=== PATIENT | female | born 1960 | race Caucasian/White ===

== ENCOUNTER → 2017-06-28 | Outpatient (REF) | payer OTHER ==
[2017-06-28 18:20] LABS: ALBUMIN/GLOBULIN RATIO 1.33 (1.00-1.93); ALKALINE PHOSPHATASE 90 U/L (45-117); ALT/SGPT 26 U/L (12-78); ANION GAP 6 MEQ/L (8-16); AST/SGOT 15 U/L (15-37); BILIRUBIN,TOTAL 0.6 MG/DL (0.2-1.0); BLOOD UREA NITROGEN 12 MG/DL (7-18); CALCIUM LEVEL 9.3 MG/DL (8.5-10.1); CARBON DIOXIDE LEVEL 29 MEQ/L (21-32); CHLORIDE LEVEL 107 MEQ/L (98-107); CREATININE FOR GFR 0.71 MG/DL (0.55-1.02); GLOMERULAR FILTRATION RATE > 60.0 (>51); GLUCOSE, FASTING 71 MG/DL (70-105); POTASSIUM SERUM 4.4 MEQ/L (3.5-5.1); SODIUM LEVEL 142 MEQ/L (136-145)
[2017-06-28 21:50] LABS: MEAN CORPUSCULAR HGB CONC 33.7 g/dl (32.0-36.5); RED CELL DISTRIBUTION WIDTH 12.7 % (11.5-14.5); WHITE BLOOD COUNT 4.8 K/mm3 (4.0-10.0)
[2017-07-01 00:06] LABS: Lyme Disease IgG/IgM Antibodie <0.91 ISR (0.00-0.90); Lyme Disease IgM Ab Quantitati <0.80 index (0.00-0.79)
== END ==
LOC: M SFHCCLAY 13:52
PROVIDERS: ATTEND Nurse Practitioner
DX: G89.29 Other chronic pain (principal); R53.83 Other fatigue; M79.1 Myalgia

== ENCOUNTER → 2018-01-29 | Outpatient (CLI) | payer OTHER | LOC: M CLY 11:58 | DX: M17.12 Unilateral primary osteoarthritis, left knee (principal) | CPT/HCPCS: 73564 ==

== ENCOUNTER → 2019-06-25 | Outpatient (REF) | payer OTHER | LOC: M SFHCCLAY 12:19 | PROVIDERS: ATTEND Nurse Practitioner Family | DX: Z01.419 Encounter for gynecological examination (general) (routine) without abnormal findings (principal) ==

== ENCOUNTER → 2020-12-16 | Outpatient (CLI) | payer OTHER ==
--- NOTE | 2020-12-16 10:02 | REP ---
INDICATION: PAIN LT KNEE, OA LT JKNEE. COMPARISON: Radiographs 01/29/2018 TECHNIQUE: Multiple sequences obtained in the axial, coronal and sagittal planes. FINDINGS: Menisci: There is a complex tear of the posterior horn of the medial meniscus. Lateral meniscus appears intact. Cruciate ligaments: Intact. Collateral ligaments: Intact. Extensor mechanism/patellar retinacula: Intact. Cartilage: There is moderate diffuse chondromalacia of the patella. There is a focal 4 mm chondral defect of the lateral patellar facet extending close to the bone surface with some minimal subchondral marrow edema. There is moderate diffuse chondromalacia along the medial femoral condyle and tibial plateau. There is mild diffuse chondromalacia along the lateral femoral condyle and tibial plateau. Bone marrow: There is mild subchondral marrow edema in the medial femoral condyle and lateral patellar facet. Small subchondral cystic changes are seen at the femoral notch and in the tibial plateau centrally. Joint fluid: There are moderate joint effusion with synovial thickening. Popliteal region: There is a lobulated Meraz's cyst which measures approximately 4.5 x 2.2 x 1.6 cm. There is mild spurring of the femoral condyles. A rounded structure at the anterolateral aspect of the joint may represent a joint body measuring about 1 cm in maximum diameter. IMPRESSION: Complex tear posterior horn medial meniscus. Fairly significant chondromalacia as discussed in detail above, with mild subchondral marrow edema in the medial femoral condyle and lateral patellar facet. Moderate joint effusion with synovial thickening. Meraz's cyst. Possible 1 cm joint body at the anterolateral margin of the joint. <Electronically signed by Hong Crocker > 12/16/20 [id number]
== END ==
LOC: M RAD 08:13
PROVIDERS: ATTEND Orthopaedic Surgery Sports Medicine
DX: M17.12 Unilateral primary osteoarthritis, left knee (principal); S83.232A Complex tear of medial meniscus, current injury, left knee, initial encounter; X58.XXXA Exposure to other specified factors, initial encounter; Y92.9 Unspecified place or not applicable; M25.462 Effusion, left knee; M71.22 Synovial cyst of popliteal space [Baker], left knee; M94.262 Chondromalacia, left knee

== ENCOUNTER → 2021-02-25 | Outpatient (CLI) | payer OTHER ==
--- NOTE | 2021-02-25 16:31 | REP ---
INDICATION: PAIN. COMPARISON: X-ray 01/29/2018 left, 08/19/2013 right knee TECHNIQUE: AP standing bilateral knee view FINDINGS: Mild narrowing of the medial compartment of both knees, slightly more on the left than right. Marginal osteophytes medial greater than lateral joint margins and small osteophytes tibial spines. No fracture, loose body, OCD or focal bone lesion. IMPRESSION: 1. Mild chondromalacia in the medial compartment of both knees left slightly greater than right. A marginal osteophytes medial greater than lateral compartment and tibial spines. No fracture, focal lesion, loose body or osteochondral defect. <Electronically signed by Trev Gracia > 02/25/21 [id number]
== END ==
LOC: M SOG 08:44
PROVIDERS: ATTEND Family Medicine
DX: M22.41 Chondromalacia patellae, right knee (principal); M22.42 Chondromalacia patellae, left knee; M17.12 Unilateral primary osteoarthritis, left knee

== ENCOUNTER 2021-03-09 11:13 | Outpatient (RCR) | payer OTHER ==
[2021-03-23] MEDS ORDERED: IBUP200C90 PO (13:37)
[2021-03-23] MEDS ORDERED: ACET-683 PO (13:37)
== END 2021-03-25 ==
LOC: M PT 11:13
PROVIDERS: ATTEND Orthopaedic Surgery Adult Reconstructive Orthopaedic Surgery
DX: M17.12 Unilateral primary osteoarthritis, left knee (principal)

== ENCOUNTER 2021-03-29 06:50 | Inpatient (IN) | payer OTHER ==
[~2021-03-29] VITALS: Ht 157.5 cm; Wt 74.5 kg
[~2021-03-29 06:50] MED LIST: ACET-683 PO; ACETAMINOPHEN 500 MG TAB PO ONE; IBUP200C90 PO; LIDOCAINE 1% MDV 20ML VIAL SQ PRN; LR 1,000 ML IV ONE; NAPROXEN 250 MG TAB PO ONE; PREGABALIN 25 MG CAP (LYRICA) PO ONE; ceFAZolin SOD 2 GM in IV 1 EA IV ONE; dexameTHASONE 4 MG/ML 1ML VIAL (J1100 PER 1MG) IV ONE
[2021-03-29] MEDS ORDERED: MIDAZOLAM INJ 2MG/2ML VIAL (J2250 PER 1MG) As Ordered ONE (07:49)
[2021-03-29] MEDS ORDERED: fentaNYL 100 MCG/2 ML INJECTION (J3010) As Ordered ONE ×2 (07:49→13:35)
[2021-03-29] MEDS ORDERED: LIDOCAINE 2% 100MG/5ML SDV (FOR ANES.) As Ordered ONE (07:49)
[2021-03-29] MEDS ORDERED: propofoL 200 MG/20 ML VIAL As Ordered ONE ×6 (07:49→12:58)
[2021-03-29] MEDS ORDERED: TRANEXAMIC ACID 100 MG/ML 10ML VIAL As Ordered ONE ×2 (09:21→12:11)
[2021-03-29] MEDS ORDERED: dexameTHASONE 4 MG/ML 1ML VIAL (J1100 PER 1MG) As Ordered ONE (09:31)
[2021-03-29] MEDS ORDERED: ONDANSETRON 4MG/2ML VIAL As Ordered ONE (10:56)
[2021-03-29] MEDS ORDERED: ePHEDrine SULFATE 25 MG/5 ML(5MG/ML) SYRINGE As Ordered ONE (12:44)
--- NOTE | 2021-03-29 13:25 | ROOPDOC ---
[facility] Report Of Operation Report of Operation DATE OF PROCEDURE: 03/29/21 PREPROCEDURE DIAGNOSES: Left knee osteoarthritis POSTPROCEDURE DIAGNOSES: Left knee osteoarthritis PROCEDURE: Tricompartmental left knee total knee arthroplasty SURGEON: Amado Jj MD [employer] OPERATOR HELPER: Shayna Akers CST ANESTHESIA: Spinal ESTIMATED BLOOD LOSS: Approximately less than 300 mL mL. COMPLICATIONS: No known complications REMARKS: Tourniquet was inflated for approximately 60 minutes Components: Triathlon posterior stabilized femur, left, size 3. Triathlon X3 asymmetric patella. A 32 x 10 mm Triathlon x-rays, 3 tibial bearing insert, PS. 3. Bilateral 11 millimeter. Simplex bone cement 3 packages. Triathlon X3 asymmetric patella. A 32 x 10 mm: removed. Triathlon primary tibial baseplate, size #3 PROCEDURE NOTE: The patient was seen in the preoperative area and the left lower extremity was marked. She denied any changes in her medical history or otherwise. She is grossly neurovascularly intact to the left lower extremity.. DESCRIPTION OF PROCEDURE: The patient was taken to the operating room and after a positive anesthetic was carried out. The patient was positioned supine with appropriate padding. A tourniquet was placed to the left lower extremity around the thigh and inflated for the initial part of the procedure. 1 g of IV tranexamic acid was administered prior to incision. 2 g of Ancef were administered prior to incision. The lower extremity was scrubbed with a chlorhexidine brush. It was then cleansed with alcohol swabs 2 and then hydrogen peroxide solution This was followed by a sterile prep with 2 times chlorhexidine brushes and then a sterile drape in the standard fashion. A surgical pause was carried out followed by surgical safety checklist. The incision was started midline. This was carried down through subcutaneous fat. The tissue to the fascia and capsule. A midline arthrotomy was carried out. Fluid within the knee was suctioned out. The incision was carried down to expose the joint. A medial soft tissue release was carried out using electrocautery. The tourniquet was inflated due to a significant bleeder that was found at the inferior portion of the incision of the proximal tibia. This was cauterized with electrocautery. The patella was everted and the fat pad was removed. The soft tissue of the superior lateral aspect of the femur anteriorly, was removed with electrocautery. The anterior cruciate ligament and portions of the posterior cruciate ligament were excised with electrocautery. The distal femur. Intramedullary drill was introduced in the appropriate position. The flexible intramedullary adrianne was placed. The distal femoral cutting jig was positioned and the appropriate cut was made with a saw. After this was secured with 2 pins. This was removed. Of note, Homans were used to protect the collateral ligaments throughout the surgical intervention. Attention was then turned to the proximal tibia. The external alignment jig was placed. This was positioned with the 2 mm off the low side stylus. Alignment was maintained along with the anterior tibial crest and the second metatarsal. Approximately 2 mm of bone was removed. During trialing throughout the procedure, an additional 3 to millimeter bone cuts were made, as this was not sufficient and the external jig was utilized to help with this and add some slight additional posterior slope. The 3 cutting block was utilized as well. Attention was then turned to the femur. The 3 rotational guide was added for 3 of external rotation and a size #3 tibia was sized. This was placed for the 4-in-1 cutting block. The anterior and then the posterior and then the posterior and anterior chamfer cuts were made with the sagittal saw. The jig was removed. Attention was turned to the gap space. Using electrocautery of the remnants of the medial lateral menisci were excised. Flexion cautery was utilized to control any bleeders. Posterior osteophytes were removed with a curved osteotome. At this point, the femoral posterior stabilized cutting block was placed. The osteotome was used to be impacted and protect the bone from a condylar split. The sagittal saw was used to make the initial cuts. A rongeur was used to remove this and electrocautery was used to remove the soft tissue from this bone. The trial femoral component was placed. A trial tibial component was then attempted to be placed and this is when the additional 3 cuts were made on the proximal tibia in order to decrease the tightness in flexion and extension. Once this was appropriate. The tibial trial was easily placed and found to be stable in flexion and extension. A thorough irrigation of the soft tissues was carried out. The tibial component was placed and aligned with the tibial tubercle around the medial third of the tibial tubercle. This tibial tray was pinned here and the keel punch was placed. This was impacted appropriately. Attention was turned to the patella. With the knee in extension, the patella was sized and appropriately cut for a 10 mm insert. Of note, several passes were carried out due to difficulty aligning the cutting jig. Ultimately a freehand cut was performed utilizing towel clips. This was found to be appropriate. A 32 mm extended polyethylene was found to be appropriate. This was drilled and a trial was placed and taken through a range of motion. All the components appeared to be in good position and alignment. Irrigation of the soft tissues was carried out. The tourniquet was taken down. During this time, I looked for any bleeders. I did not see any active bleeders but there was a fairly steady ooze from the bone and soft tissue edges. The final components were opened with the exception of the tibial insert. Cementing was mixed on the back table. There was some difficulty getting the vacuum suction part to work during the first try. Also, the first batch of cement was discarded. A second site was next thereafter. This utilized the vacuum mixer. The tibial component was placed and impacted on the cemented surface. Cement was applied to the femoral component and onto the femur. This was impacted. Excess extruded cement was removed with the [place]. The 9 mm polyethylene insert was placed and the leg was brought into extension to allow the cement to cure. The cement was curing quite quickly, so attention was turned to the patella. Unfortunately, the patella was not able to be completely seated before the cement dried, so this had to be removed. The cement was removed with a sagittal saw and the holes were re-reamed for the 32 mm polyethylene. A thorough irrigation was carried out to remove any debris. Another batch of a single pack of cement was mixed. This was mixed with a Vacutainer. A spatula was used to apply this to the patellar component and to the patellar surface. This was clamped in position and allowed to dry appropriately. While the cement was drying, the knee was placed in extension or remained in extension and 2 g of topical tranexamic acid was placed as well as some Betadine and this was allowed to sit for over 3 minutes. . Once the cement was dry, the clamp was removed from the patella and the knee was brought into flexion. The polyethylene was removed. An osteotome was used to remove any excess cement. Thorough irrigation occurred. A size 11 PS polyethylene insert was placed and impacted into appropriate position. A [place] was utilized to ensure that this was appropriately locked in position. Thorough irrigation was then carried out. The joint was soaked in Betadine, dilute solution. The knee was taken through a range of motion and was found to be stable in flexion and extension. The patella to be tracking appropriately. The wound was again thoroughly irrigated and the arthrotomy was closed with #1 Vicryl interrupted sutures followed by a running strata fix suture, #1. Irrigation with Betadine and saline solution was carried out between the layers. Interrupted #1 Vicryl was used to close down the subcutaneous fat. A running 2. 0 Vicryl was then used to close down the subcutaneous cutaneous layer followed by subcuticular Monocryl 3.0, antibiotic on X stitch. Steri-Strips were applied after a wet driveway used on the skin and the skin had the Mastisol adhesive applied. The Mepilex dressing with silver was then applied. This will remain in position for 7 days. The patient will be weightbearing as tolerated. X-ray imaging will be reviewed in PACU. The patient will be admitted to the hospitalist service with plans for discharge tomorrow morning. Appropriate home care, home physical therapy and home occupational therapy assessments will be arranged upon discharge. AMADO JJ MD March 29, 2021 13:25
[2021-03-29] MEDS ORDERED: LR 1,000 ML IV SCH (13:35)
[2021-03-29] MEDS ORDERED: ONDANSETRON 4MG/2ML VIAL IV PRN ×2 (13:35→14:30)
[2021-03-29] MEDS ORDERED: oxyCODONE 5MG TAB PO PRN ×2 (13:35→14:45)
[2021-03-29] MEDS: fentaNYL 100 MCG/2 ML INJECTION (J3010) IV PRN ×4 (13:39→14:03)
--- NOTE | 2021-03-29 14:23 | REP ---
INDICATION: PLACEMENT COMPARISON: 02/25/2021. TECHNIQUE: AP and lateral left knee. FINDINGS: Total knee prosthesis is in good position. The osseous structures are intact and well aligned. IMPRESSION: Total knee prosthesis in good position. <Electronically signed by Hong Crocker > 03/29/21 [id number]
[2021-03-29] MEDS ORDERED: ACETAMINOPHEN TAB 650MG DOSE (2X325MG) PO PRN (14:30)
[2021-03-29] MEDS ORDERED: SENNA 8.6 MG TAB (SENOKOT) PO PRN (14:45)
[2021-03-29 15:00] VITALS: BP 114/77
[2021-03-29] MEDS: LR 1,000 ML IV SCH (15:29)
[2021-03-29 15:30] VITALS: BP 116/75
[2021-03-29] MEDS ORDERED: MOM 30ML SUSPENSION UDC PO PRN (15:55)
--- NOTE | 2021-03-29 16:07 | HPEPDOC ---
[facility] Medical History & Physical Date of Admission March 29, 2021 Date of Service: March 29, 2021 History and Physical Chief complaint: Who presented to [facility] for an elective orthopedic procedure History of present illness: Patient is a 60-year-old female with no significant past medical history who presented to [facility] for elective orthopedic procedure. Patient has received outpatient medical care from her primary care provider Tri Bedoya. Patient is seen postoperatively. She denies any headache, nausea, vomiting, chest pain, shortness of breath, palpitations, abdominal pain, constipation, diarrhea, or urinary discomfort. Patient denies any recent fevers or chills. She does report 5 out of 10 left knee pain, described as aching and continuous. Past Medical History: Osteoarthritis Past Surgical History: Appendectomy Left hand first index finger cyst removal Allergies: See below Medications: See below Family History: - Reviewed and noncontributory Social History: - Denies the use of alcohol, tobacco or illicit drugs - Denies recent travel or sick contacts - Lives with , 3 grandchildren and 2 doxepin - Occupation; [employer] Review of Systems: 10 point review of systems complete, all negative otherwise stated in HPI Physical exam: - Vitals: BP [116/75], HR [69], RR [18], Sat [95%RA], Temp [98.8F] - General: Lying in bed, No acute distress, Speaking in full sentences, AAOx3 - HEENT: NC, AT, PERRLA, EOMI - CVS: RRR, +S1S2 - Lungs: Fair air entry bilaterally, No appreciable wheezing / rales / rhonchi - Abdomen: Soft, Non-distended, Non-tender, - Extremities: No lower extremity edema, No calf tenderness; left knee in d ressing - Neuro: No focal motor or sensory deficit - Skin: No visible rashes Labs: See below Imaging: XR L Knee 03/29: Total knee prosthesis in good position. EKG: See below Assessment and Plan: Elective total left knee arthroplasty - Patient presented to [facility] for an elective orthopedic procedure - She has received outpatient medical care from her primary care provider - Hospital service was consulted for medical management - Pain control, physical therapy and anticoagulation as per orthopedic surgery No significant past medical history - Will check morning lab work including A1c DVT prophylaxis - Will start TEDs/Sequentials - Orthopedic surgery has ordered ASA 81 BID; however will discuss with them about increasing coverage Vital Signs Vital Signs Date Time Temp Pulse Resp B/P (MAP) Pulse Ox O2 Delivery O2 Flow Rate FiO2 03/29/21 15:30 98.8 69 18 116/75 (89) 95 Room Air Home Medications Scheduled Acetaminophen (Acetaminophen) 500 Mg Tablet, 1,500 MG PO BID Scheduled PRN Ibuprofen (Ibuprofen) 200 Mg Capsule, 800 MG PO BIDP PRN for PAIN Allergies Coded Allergies: No Known Allergies (Unverified , 03/23/21) SAKINA LIRA MD March 29, 2021 16:07
[2021-03-29 16:30] VITALS: BP 130/84
[2021-03-29] MEDS: FERROUS SULFATE 325MG TAB PO SCH (16:58)
[2021-03-29] MEDS: ceFAZolin SOD 2 GM in IV 1 EA IV SCH (17:00)
[2021-03-29 17:30] VITALS: BP 127/81
[2021-03-29] MEDS ORDERED: ceFAZolin SOD 2 GM in IV 1 EA IV SCH (18:00)
[2021-03-29 18:30] VITALS: BP 127/73
[2021-03-29] MEDS ORDERED: DOCUSATE SODIUM 100MG CAPSULE PO SCH (21:00)
[2021-03-29] MEDS: ASPIRIN 81MG ENTERIC TABLET PO SCH (21:56)
[2021-03-29] MEDS: DOCUSATE SODIUM 100MG CAPSULE PO SCH (21:57)
[2021-03-29] MEDS: oxyCODONE 5MG TAB PO PRN (21:57)
[2021-03-29] MEDS: NAPROXEN 250 MG TAB PO SCH (21:57)
[2021-03-29 22:00] VITALS: BP 123/73
[2021-03-30] MEDS: LR 1,000 ML IV SCH (00:26)
[2021-03-30 02:00] VITALS: BP 116/71
[2021-03-30] MEDS: ceFAZolin SOD 2 GM in IV 1 EA IV SCH ×2 (02:10→08:57)
[2021-03-30] MEDS: oxyCODONE 5MG TAB PO PRN ×3 (02:11→10:27)
[2021-03-30 06:00] VITALS: BP 114/70
[2021-03-30 06:54] LABS: EOS % 0.1 % (0.0-3.0); HEMATOCRIT 30.1 % (36.0-47.0); HEMOGLOBIN 9.8 g/dl (12.0-15.5); LYMPH # 1.6 10^3/uL (1.5-5.0); LYMPH % 20.6 % (24.0-44.0); MEAN CORPUSCULAR HEMOGLOBIN 30.3 pg (27.0-33.0); MEAN CORPUSCULAR HGB CONC 32.6 g/dl (32.0-36.5); MEAN CORPUSCULAR VOLUME 93.2 fl (80.0-96.0); MONO # 0.5 10^3/uL (0.0-0.8); MONO % 6.7 % (2.0-8.0); NEUTROPHILS # 5.5 10^3/uL (1.5-8.5); NEUTROPHILS % 72.2 % (36.0-66.0); PLATELET COUNT, AUTOMATED 178 10^3/uL (150-450); RED BLOOD COUNT 3.23 10^6/uL (4.00-5.40); WHITE BLOOD COUNT 7.7 10^3/uL (4.0-10.0)
--- NOTE | 2021-03-30 07:10 | IPNPDOC ---
Text Note Date of Service The patient was seen on 03/30/21. NOTE POD 1 Left TKA Pt doing well. Pain less than a 5/10. Has been walking to the BR. Minimal pain out, but pain increased on return trip. no CP or SOB Bulky dressing taken down. Dressing intact, clean and dry. Grossly NVI to left foot and ankle. Sheri to right leg. No sequentials in place. Xray: Post op xray shows Left TKA in position with no obvious signs of complications Plan: Nursing in room to place left sheri, now Patient to be started on aspirin 81 mg by mouth twice a day for DVT prophylaxis. Patient will also have iron supplement, and vitamin C supplement, prescriptions for discharge. Mobilize with physical therapy and occupational therapy plan for DC home when able, and cleared. Discharge Instructions Total Knee Arthroplasty 1. Pain: You may take oxycodone as prescribed for pain. Supplement with ibuprofen and Tylenol as needed. Ice pack to operative knee as tolerated. On, 20 minutes off 20 minutes with appropriate barrier between skin and ice pack 2. Wound care: Remove dressing on postop day 7. Call [phone] with any questions or concerns. Hygiene: The patient may shower. No tub baths. Check dressing seal prior to bathing. 3. Activity: WBAT on the left lower extremity. Front wheeled walker versus crutches for ambulation. Fall precautions. 4. Driving: No driving until cleared by your surgeon. Do not drive if taking narcotic pain medications as these may make you drowsy. 5. DVT Prophylaxis: Continue taking aspirin 81 mg by mouth twice a day, as prescribed for the prevention of blood clots. Ankle pumps every 1 hour while awake. SHERI hose at all times for 1 month after surgery. May remove for hygiene and wound care. 6. Placement: Plan is to discharge patient to home with home health including nursing and physical therapy. 7. Surgeon Follow-up: The patient is scheduled to be seen in Dr. Jj's office 2 weeks post op with xrays. 8. Primary care Follow-up: Please see your primary care provider in the next 2 to 5 weeks for general medical re-evaluation and medication review. 9. Labs: CBC without differential and BMP to be drawn on postop day 3 with results to PCP and please fax to [phone]. 10. Please contact [facility] if you have any questions or concerns at [phone]. VS,Fishbone, I+O VS, Fishbone, I+O Laboratory Tests 03/30/21 06:13 Vital Signs Date Time Temp Pulse Resp B/P (MAP) Pulse Ox O2 Delivery O2 Flow Rate FiO2 03/30/21 06:48 18 03/30/21 06:00 99.3 72 114/70 (85) 95 Room Air I&O- Last 24 Hours up to 6 AM 03/30/21 06:00 Intake Total 2650 ml Output Total 3250 ml Balance -600 ml LOVE JJ MD March 30, 2021 07:10
[2021-03-30 07:23] LABS: BLOOD UREA NITROGEN 17 MG/DL (7-18); CALCIUM LEVEL 8.7 MG/DL (8.5-10.1); CARBON DIOXIDE LEVEL 29 MEQ/L (21-32); CHLORIDE LEVEL 106 MEQ/L (98-107); CREATININE FOR GFR 0.71 MG/DL (0.55-1.30); GLOMERULAR FILTRATION RATE > 60.0 (>51); GLUCOSE, FASTING 94 MG/DL (70-100); MAGNESIUM LEVEL 1.9 MG/DL (1.8-2.4); POTASSIUM SERUM 4.2 MEQ/L (3.5-5.1); SODIUM LEVEL 140 MEQ/L (136-145)
[2021-03-30 07:25] LABS: HEMOGLOBIN A1c 5.5 %
[2021-03-30] MEDS: ASPIRIN 81MG ENTERIC TABLET PO SCH (08:56)
[2021-03-30] MEDS: FERROUS SULFATE 325MG TAB PO SCH (08:56)
[2021-03-30] MEDS: NAPROXEN 250 MG TAB PO SCH (08:57)
[2021-03-30] MEDS: DOCUSATE SODIUM 100MG CAPSULE PO SCH (08:57)
[2021-03-30] MEDS ORDERED: ASCORBIC ACID 500 MG TAB PO SCH (09:00)
[2021-03-30] MEDS ORDERED: ASPI-551 PO (09:38)
[2021-03-30] MEDS ORDERED: FERR1TAB8 PO (09:38)
[2021-03-30] MEDS ORDERED: DOK1CAP7 PO (09:38)
[2021-03-30] MEDS ORDERED: PERC5TAB12 PO (09:38)
[2021-03-30 10:00] VITALS: BP 119/70
--- NOTE | 2021-03-30 11:59 | DS.PDOC ---
Discharge Summary General Date of Admission March 29, 2021 at 15:53 Date of Discharge 03/30/2021 Discharge Summary PROCEDURES PERFORMED DURING STAY: Tricompartmental left knee total knee arthroplasty on 03/29/[address] Noe Araujo ADMITTING DIAGNOSES / DISCHARGE DIAGNOSES: Elective total left knee arthroplasty No significant past medical history DVT prophylaxis COMPLICATIONS/CHIEF COMPLAINT: Left Knee Osteoarthritis. HISTORY OF PRESENT ILLNESS: Patient is a 60-year-old female with no significant past medical history who presented to [facility] for elective orthopedic procedure. Patient has rece ived outpatient medical care from her primary care provider Tri Bedoya. Patient is seen postoperatively. Hospitalist service was consulted for medical management. HOSPITAL COURSE: Elective total left knee arthroplasty - Patient presented to [facility] for an elective orthopedic procedure - She has received outpatient medical care from her primary care provider - Hospital service was consulted for medical management - Pain control, physical therapy and anticoagulation as per orthopedic surgery No significant past medical history - A1c within normal limits DVT prophylaxis - c/w TEDs/Sequentials - Patient has been ordered on aspirin 81 twice a day as per orthopedic surgery DISCHARGE MEDICATIONS: Please see below. ALLERGIES: Please see below. PHYSICAL EXAMINATION ON DISCHARGE: Vitals (See below) General: Patient is sitting up in bed, appears to be comfortable, not in any acute distress, is oriented to person, place and time HEENT: NC, AT CVS: +S1S2 Lungs: Fair air entry b/l, no wheezing, rhonchi or rales Abdomen: Soft, nondistended and nontender Extremities: - Edema, - Calf tenderness, left knee with dressing in place LABORATORY DATA: Please see below. IMAGING: XR L Knee 03/29: Total knee prosthesis in good position. ACTIVITY: [As tolerated]. DISCHARGE PLAN: Follow-up with primary care provider within the next 7 days Follow-up with orthopedic surgery within the next 7 days Remain compliant with treatment plan and medications 'Return to the ER if you experience any problems DISPOSITION: Home with services DISCHARGE CONDITION: [Stable]. TIME SPENT ON DISCHARGE: 35 minutes. Vital Signs/I&Os Vital Signs Date Time Temp Pulse Resp B/P (MAP) Pulse Ox O2 Delivery O2 Flow Rate FiO2 03/30/21 10:27 19 03/30/21 06:00 99.3 72 114/70 (85) 95 Room Air I&O- Last 24 Hours up to 6 AM 03/30/21 05:59 Intake Total 2170 ml Output Total 2700 ml Balance -530 ml Laboratory Data Labs 24H Laboratory Tests 2 03/30/21 06:13: Immature Granulocyte % (Auto) 0.4, Neutrophils (%) (Auto) 72.2H, Lymphocytes (%) (Auto) 20.6L, Monocytes (%) (Auto) 6.7, Eosinophils (%) (Auto) 0.1, Basophils (%) (Auto) 0.0, Neutrophils # (Auto) 5.5, Lymphocytes # (Auto) 1.6, Monocytes # (Auto) 0.5, Eosinophils # (Auto) 0.0, Basophils # (Auto) 0.0, Nucleated Red Blood Cells % (auto) 0.0, Anion Gap 5L, Glomerular Filtration Rate > 60.0, Estimated Mean Plasma Glucose 111H, Hemoglobin A1c 5.5, Calcium Level 8.7, Magnesium Level 1.9 CBC/BMP Laboratory Tests 03/30/21 06:13 Discharge Medications Scheduled Acetaminophen (Acetaminophen) 500 Mg Tablet, 1,500 MG PO BID, (Reported) Aspirin (Aspirin EC) 81 Mg Tablet.dr, 81 MG PO BID Docusate Sodium (Dok) 100 Mg Capsule, 100 MG PO BID Ferrous Sulfate (Ferrous Sulfate) 325 Mg Tablet, 325 MG PO DAILY Scheduled PRN Oxycodone HCl/Acetaminophen (Percocet 5-325 mg Tablet) 1 Each Tablet, 1-2 TAB PO Q6HP PRN for MODERATE/SEVERE PAIN (PS 5-10) Allergies Coded Allergies: No Known Allergies (Unverified , 03/23/21) SAKINA LIRA MD March 30, 2021 11:59
== END 2021-03-30 13:55 | disposition home or self-care (01) | DRG 302 ==
LOC: M SDC 06:50 → M MS5PR 15:10 → M SDC 15:52 → M MS5PR 15:53
PROVIDERS: ADMIT Internal Medicine; ATTEND Internal Medicine
PROC: 0SRD0J9 Replacement of Left Knee Joint with Synthetic Substitute, Cemented, Open Approach (ICD-10-PCS; principal; 2021-03-29 09:30)
DX: M17.12 Unilateral primary osteoarthritis, left knee (principal); Z79.899 Other long term (current) drug therapy

== ENCOUNTER → 2021-04-07 | Outpatient (REF) | payer OTHER ==
[~2021-04-07] MED LIST changes: -ACETAMINOPHEN 500 MG TAB PO ONE; +ASPI-551 PO; +DOK1CAP7 PO; +FERR1TAB8 PO; -LIDOCAINE 1% MDV 20ML VIAL SQ PRN; -LR 1,000 ML IV ONE; -NAPROXEN 250 MG TAB PO ONE; +PERC5TAB12 PO; -PREGABALIN 25 MG CAP (LYRICA) PO ONE; -ceFAZolin SOD 2 GM in IV 1 EA IV ONE; -dexameTHASONE 4 MG/ML 1ML VIAL (J1100 PER 1MG) IV ONE
[2021-04-07 16:19] LABS: BASO % 0.2 % (0.0-1.0); EOS # 0.1 10^3/uL (0.0-0.5); EOS % 1.2 % (0.0-3.0); HEMATOCRIT 30.9 % (36.0-47.0); HEMOGLOBIN 9.8 g/dl (12.0-15.5); LYMPH # 0.9 10^3/uL (1.5-5.0); LYMPH % 17.6 % (24.0-44.0); MEAN CORPUSCULAR HEMOGLOBIN 29.9 pg (27.0-33.0); MEAN CORPUSCULAR HGB CONC 31.7 g/dl (32.0-36.5); MEAN CORPUSCULAR VOLUME 94.2 fl (80.0-96.0); MONO # 0.3 10^3/uL (0.0-0.8); MONO % 6.6 % (2.0-8.0); NEUTROPHILS # 3.6 10^3/uL (1.5-8.5); NEUTROPHILS % 73.8 % (36.0-66.0); PLATELET COUNT, AUTOMATED 403 10^3/uL (150-450); RED BLOOD COUNT 3.28 10^6/uL (4.00-5.40); WHITE BLOOD COUNT 4.9 10^3/uL (4.0-10.0)
[2021-04-07 16:50] LABS: ALBUMIN 3.4 GM/DL (3.2-5.2); ALT/SGPT 56 U/L (12-78); BILIRUBIN,TOTAL 0.7 MG/DL (0.2-1.0); BLOOD UREA NITROGEN 16 MG/DL (7-18); CARBON DIOXIDE LEVEL 29 MEQ/L (21-32); CHLORIDE LEVEL 103 MEQ/L (98-107); CREATININE FOR GFR 0.57 MG/DL (0.55-1.30); GLOMERULAR FILTRATION RATE > 60.0 (>51); GLUCOSE, FASTING 93 MG/DL (70-100); POTASSIUM SERUM 4.3 MEQ/L (3.5-5.1); SODIUM LEVEL 138 MEQ/L (136-145); TOTAL PROTEIN 6.8 GM/DL (6.4-8.2)
== END ==
LOC: M SFHCCLAY 11:04
PROVIDERS: ATTEND Nurse Practitioner Family
DX: Z09 Encounter for follow-up examination after completed treatment for conditions other than malignant neoplasm (principal); Z96.652 Presence of left artificial knee joint

== ENCOUNTER → 2021-04-11 | Outpatient (CLI) | payer OTHER ==
--- NOTE | 2021-04-11 14:25 | REP ---
INDICATION: POST OP. COMPARISON: None. TECHNIQUE: AP, sunrise and lateral views of the left knee FINDINGS: Prior knee replacement with normal positioning to the tibial and femoral components. Heterogeneous sclerotic and postsurgical changes to the patella noted. Lateral view best demonstrates anterior and prepatellar soft tissue swelling. IMPRESSION: Status post left knee replacement. Soft tissue swelling. <Electronically signed by Stephan Juarez > 04/11/21 [id number]
== END ==
LOC: M SOG 11:09
PROVIDERS: ATTEND Orthopaedic Surgery Adult Reconstructive Orthopaedic Surgery
DX: Z48.89 Encounter for other specified surgical aftercare (principal)

== ENCOUNTER → 2021-04-12 | Outpatient (REF) | payer OTHER ==
[2021-04-12 16:07] LABS: BASO % 0.2 % (0.0-1.0); EOS # 0.1 10^3/uL (0.0-0.5); EOS % 1.5 % (0.0-3.0); HEMATOCRIT 33.9 % (36.0-47.0); LYMPH # 1.5 10^3/uL (1.5-5.0); LYMPH % 23.3 % (24.0-44.0); MEAN CORPUSCULAR HEMOGLOBIN 30.3 pg (27.0-33.0); MEAN CORPUSCULAR HGB CONC 32.4 g/dl (32.0-36.5); MEAN CORPUSCULAR VOLUME 93.4 fl (80.0-96.0); MONO # 0.4 10^3/uL (0.0-0.8); MONO % 5.5 % (2.0-8.0); NEUTROPHILS # 4.5 10^3/uL (1.5-8.5); NEUTROPHILS % 69.2 % (36.0-66.0); PLATELET COUNT, AUTOMATED 488 10^3/uL (150-450); RED BLOOD COUNT 3.63 10^6/uL (4.00-5.40); WHITE BLOOD COUNT 6.5 10^3/uL (4.0-10.0)
== END ==
LOC: M SFHCCLAY 11:53
PROVIDERS: ATTEND Nurse Practitioner Family
DX: D62 Acute posthemorrhagic anemia (principal)

== ENCOUNTER 2021-04-22 11:00 | Outpatient (RCR) | payer OTHER | END 2021-04-25 | LOC: M PT 11:00 | PROVIDERS: ATTEND Orthopaedic Surgery Adult Reconstructive Orthopaedic Surgery | DX: Z96.652 Presence of left artificial knee joint (principal) ==

== ENCOUNTER → 2021-05-05 | Outpatient (CLI) | payer OTHER ==
--- NOTE | 2021-05-05 10:40 | REP ---
INDICATION: ENCOUNTER FOR OTHER SPECIFIED SURGICAL AFTER CARE Taylor DURAN COMPARISON: None. TECHNIQUE: AP, lateral, sunrise views of the left knee FINDINGS: Patient is status post arthroplasty with normal appearance and positioning to the femoral and tibial components. Overlying soft tissue swelling noted and possible joint effusion. IMPRESSION: Status post replacement. Overlying soft tissue swelling and effusion suspected. <Electronically signed by Stephan Juarez > 05/05/21 1037
== END ==
LOC: M SOG 09:27
PROVIDERS: ATTEND Orthopaedic Surgery Adult Reconstructive Orthopaedic Surgery
DX: Z48.89 Encounter for other specified surgical aftercare (principal)

== ENCOUNTER 2021-05-19 11:45 | Outpatient (RCR) | payer OTHER | END 2021-05-25 | LOC: M PT 11:45 | PROVIDERS: ATTEND Orthopaedic Surgery Adult Reconstructive Orthopaedic Surgery | DX: Z96.652 Presence of left artificial knee joint (principal); Z47.89 Encounter for other orthopedic aftercare ==

== ENCOUNTER → 2021-06-10 | Outpatient (CLI) | payer OTHER ==
--- NOTE | 2021-06-10 11:12 | REP ---
INDICATION: S/P LT TOTAL KNEE ARTHROPLASTY ? LOOSENING TIBIAL. COMPARISON: None. TECHNIQUE: 2 x 2 mm increments using standard helical technique reconstructed in both sagittal and coronal planes. FINDINGS: Significant spray artifact arises from a total knee prosthesis. There is no gross acute fracture. The alignment is near anatomical. The femoral and and tibial components appear well seated and well approximated. There is no evidence of a gross effusion, however, small effusion cannot be ruled out. IMPRESSION: As above. Loosening cannot be ruled out. Consider triple phase bone scan. <Electronically signed by Lázaro Al > 06/10/21 1717
== END ==
LOC: M RAD 10:13
PROVIDERS: ATTEND Orthopaedic Surgery Adult Reconstructive Orthopaedic Surgery
DX: Z96.652 Presence of left artificial knee joint (principal)

== ENCOUNTER → 2021-06-15 | Outpatient (CLI) | payer OTHER ==
--- NOTE | 2021-06-15 13:53 | REP ---
INDICATION: PRESENCE OF LT ARTIFICAL KNEE JOINT. COMPARISON: Comparison left knee radiographs April 11, 2021.. TECHNIQUE: Three views of the left knee are provided. FINDINGS: [place], lateral, and AP views of the left knee demonstrate left knee arthroplasty components in good position. There is diffuse prepatellar soft tissue swelling. Bones, joints, and soft tissues are otherwise unremarkable. IMPRESSION: Left knee arthroplasty in position. Diffuse prepatellar anterior swelling. <Electronically signed by Jeremías Harding > 06/15/21 [id number]
== END ==
LOC: M SOG 08:56
PROVIDERS: ATTEND Orthopaedic Surgery Adult Reconstructive Orthopaedic Surgery
DX: Z96.652 Presence of left artificial knee joint (principal)

== ENCOUNTER → 2021-06-21 | Outpatient (CLI) | payer OTHER ==
[2021-06-21 12:57] LABS: BASO % 0.2 % (0.0-1.0); EOS # 0.1 10^3/uL (0.0-0.5); EOS % 1.1 % (0.0-3.0); HEMATOCRIT 40.7 % (36.0-47.0); HEMOGLOBIN 13.2 g/dl (12.0-15.5); LYMPH # 1.6 10^3/uL (1.5-5.0); LYMPH % 29.8 % (24.0-44.0); MEAN CORPUSCULAR HEMOGLOBIN 29.9 pg (27.0-33.0); MEAN CORPUSCULAR HGB CONC 32.4 g/dl (32.0-36.5); MEAN CORPUSCULAR VOLUME 92.3 fl (80.0-96.0); MONO # 0.4 10^3/uL (0.0-0.8); MONO % 7.3 % (2.0-8.0); NEUTROPHILS # 3.3 10^3/uL (1.5-8.5); NEUTROPHILS % 61.4 % (36.0-66.0); PLATELET COUNT, AUTOMATED 250 10^3/uL (150-450); RED BLOOD COUNT 4.41 10^6/uL (4.00-5.40); WHITE BLOOD COUNT 5.3 10^3/uL (4.0-10.0)
[2021-06-21 14:13] LABS: ERYTHROCYTE SEDIMENTATION RATE 8 mm/hr (0-30)
== END ==
LOC: M LAB 12:05
PROVIDERS: ATTEND Orthopaedic Surgery Adult Reconstructive Orthopaedic Surgery
DX: Z96.652 Presence of left artificial knee joint (principal)

== ENCOUNTER → 2021-06-25 | Outpatient (CLI) | payer OTHER | LOC: M LABSMTC 10:36 | PROVIDERS: ATTEND Anesthesiology | DX: Z01.818 Encounter for other preprocedural examination (principal); Z11.52 Encounter for screening for COVID-19 ==

== ENCOUNTER 2021-06-30 08:23 | Observation (INO) | payer OTHER ==
[2021-06-30] VITALS (8 sets, daily range): BP systolic 110–126; BP diastolic 61–68
[~2021-06-30] VITALS: Ht 157.5 cm; Wt 72.9 kg
[~2021-06-30 08:23] MED LIST changes: +ACETAMINOPHEN 500 MG TAB PO ONE; +DOK1CAP4 PO; -DOK1CAP7 PO; +NAPROXEN 250 MG TAB PO ONE; +NS 1,000 ML IV SCH; +PREGABALIN 25 MG CAP (LYRICA) PO ONE; +TRANEXAMIC ACID INJection 1,000 MG in NS 50 ML IV ONE; +ceFAZolin SOD 2 GM in IV 1 EA IV ONE; +dexameTHASONE 4 MG/ML 1ML VIAL (J1100 PER 1MG) IV ONE
[2021-06-30] MEDS ORDERED: propofoL 200 MG/20 ML VIAL As Ordered ONE (10:43)
[2021-06-30] MEDS ORDERED: LIDOCAINE 2% 100MG/5ML SDV (FOR ANES.) As Ordered ONE (10:43)
[2021-06-30] MEDS ORDERED: ONDANSETRON 4MG/2ML VIAL As Ordered ONE (10:43)
[2021-06-30] MEDS ORDERED: ROCURONIUM BROMIDE 50 MG/5 ML VIAL As Ordered ONE ×2 (10:43→12:09)
[2021-06-30] MEDS ORDERED: fentaNYL 250 MCG/5 ML INJECTION As Ordered ONE (10:44)
[2021-06-30] MEDS ORDERED: dexameTHASONE 4 MG/ML 1ML VIAL (J1100 PER 1MG) As Ordered ONE (10:44)
[2021-06-30] MEDS ORDERED: MIDAZOLAM INJ 2MG/2ML VIAL (J2250 PER 1MG) As Ordered ONE (10:44)
[2021-06-30] MEDS ORDERED: TRANEXAMIC ACID 100 MG/ML 10ML VIAL As Ordered ONE (10:50)
[2021-06-30] MEDS ORDERED: ROPIVA 125MG/EPINEPH 0.25MG/CLONID 40MCG/KETOR 15MG IN NS 50ML SYRINGE PA ONE (11:40)
[2021-06-30] MEDS ORDERED: HYDROmorphone HCL 2MG/ML 1ML VIAL As Ordered ONE (12:01)
[2021-06-30] MEDS ORDERED: SUGAMMADEX SODIUM 500 MG/5 ML VIAL (BRIDION) As Ordered ONE (12:01)
[2021-06-30] MEDS ORDERED: ACETAMINOPHEN 1000MG 100ML IV BTL (OFIRMEV) (J0131 PER 10MG) As Ordered ONE (12:01)
[2021-06-30] MEDS ORDERED: fentaNYL 100 MCG/2 ML INJECTION IV PRN (14:05)
[2021-06-30] MEDS ORDERED: ONDANSETRON 4MG/2ML VIAL IV PRN ×3 (14:05→14:35)
[2021-06-30] MEDS ORDERED: LR 1,000 ML IV SCH ×2 (14:05→14:35)
[2021-06-30] MEDS: oxyCODONE 5MG TAB PO PRN ×3 (14:12→18:57)
[2021-06-30] MEDS ORDERED: ACETAMINOPHEN 500 MG TAB PO PRN (14:15)
[2021-06-30] MEDS: HYDROMORPHONE HCL 0.5 MG/ 0.5 ML SYRINGE (J1170 PER 1) IV PRN ×2 (14:20→14:31)
[2021-06-30] MEDS ORDERED: PERCOCET 5MG/325MG TAB PO PRN ×2 (14:25)
[2021-06-30] MEDS ORDERED: SENNA 8.6 MG TAB (SENOKOT) PO PRN (14:35)
[2021-06-30] MEDS: ACETAMINOPHEN TAB 650MG DOSE (2X325MG) PO SCH (18:00)
[2021-06-30] MEDS: FERROUS SULFATE 325MG TAB PO SCH (18:00)
[2021-06-30] MEDS: ASCORBIC ACID 500 MG TAB PO SCH (18:01)
[2021-06-30] MEDS: traMADol 50 MG TAB PO PRN ×2 (18:01→22:51)
[2021-06-30] MEDS: DOCUSATE SODIUM 100MG CAPSULE PO SCH (20:10)
[2021-06-30] MEDS: ceFAZolin SOD 2 GM in IV 1 EA IV SCH (20:10)
[2021-06-30] MEDS: NAPROXEN 250 MG TAB PO SCH (20:11)
[2021-07-01] MEDS: ACETAMINOPHEN TAB 650MG DOSE (2X325MG) PO SCH ×5 (00:15→23:27)
[2021-07-01 02:00] VITALS: BP 99/57
[2021-07-01] MEDS: traMADol 50 MG TAB PO PRN ×2 (03:04→11:21)
[2021-07-01] MEDS: ceFAZolin SOD 2 GM in IV 1 EA IV SCH (03:49)
[2021-07-01 05:46] LABS: HEMATOCRIT 33.1 % (36.0-47.0); HEMOGLOBIN 10.7 g/dl (12.0-15.5); MEAN CORPUSCULAR HEMOGLOBIN 30.1 pg (27.0-33.0); MEAN CORPUSCULAR HGB CONC 32.3 g/dl (32.0-36.5); PLATELET COUNT, AUTOMATED 221 10^3/uL (150-450); RED BLOOD COUNT 3.56 10^6/uL (4.00-5.40); WHITE BLOOD COUNT 10.8 10^3/uL (4.0-10.0)
[2021-07-01 06:00] VITALS: BP 116/64
[2021-07-01 06:05] LABS: BLOOD UREA NITROGEN 16 MG/DL (7-18); CARBON DIOXIDE LEVEL 28 MEQ/L (21-32); CHLORIDE LEVEL 107 MEQ/L (98-107); CREATININE FOR GFR 0.64 MG/DL (0.55-1.30); GLOMERULAR FILTRATION RATE > 60.0 (>45); GLUCOSE, FASTING 113 MG/DL (70-100); MAGNESIUM LEVEL 1.8 MG/DL (1.8-2.4); POTASSIUM SERUM 4.7 MEQ/L (3.5-5.1); SODIUM LEVEL 139 MEQ/L (136-145)
[2021-07-01] MEDS: FERROUS SULFATE 325MG TAB PO SCH (08:18)
[2021-07-01] MEDS: ASCORBIC ACID 500 MG TAB PO SCH (08:19)
[2021-07-01] MEDS: DOCUSATE SODIUM 100MG CAPSULE PO SCH ×2 (08:19→20:30)
[2021-07-01] MEDS: NAPROXEN 250 MG TAB PO SCH ×2 (08:19→20:30)
[2021-07-01] MEDS: oxyCODONE 5MG TAB PO PRN ×4 (08:20→23:28)
[2021-07-01 14:00] VITALS: BP 90/63
[2021-07-01 20:45] VITALS: BP 118/58
[2021-07-02] MEDS: oxyCODONE 5MG TAB PO PRN ×2 (04:25→09:51)
[2021-07-02 06:00] VITALS: BP 116/61
[2021-07-02] MEDS: ACETAMINOPHEN TAB 650MG DOSE (2X325MG) PO SCH ×2 (06:02→12:16)
[2021-07-02] MEDS: DOCUSATE SODIUM 100MG CAPSULE PO SCH (08:07)
[2021-07-02] MEDS: FERROUS SULFATE 325MG TAB PO SCH (08:07)
[2021-07-02] MEDS: NAPROXEN 250 MG TAB PO SCH (08:08)
[2021-07-02] MEDS: ASCORBIC ACID 500 MG TAB PO SCH (08:08)
== END 2021-07-02 13:00 | disposition home health service (06) ==
LOC: M SDC 08:23 → M MS5PR 14:10
PROVIDERS: ADMIT Family Medicine; ATTEND Orthopaedic Surgery Adult Reconstructive Orthopaedic Surgery
DX: T84.033A Mechanical loosening of internal left knee prosthetic joint, initial encounter (principal); T84.84XA Pain due to internal orthopedic prosthetic devices, implants and grafts, initial encounter; M25.562 Pain in left knee; R01.1 Cardiac murmur, unspecified; Z79.82 Long term (current) use of aspirin; Z79.899 Other long term (current) drug therapy; K58.8 Other irritable bowel syndrome; Y79.2 Prosthetic and other implants, materials and accessory orthopedic devices associated with adverse incidents
CPT/HCPCS: 27486; 36415; 73560; 80048; 83735; 85027; 87070; 87205; 93306; 96365; 96366; 96375; 97110; 97116; 97161; 97165; 97530; C1713; C1776; J0690; J1100; J1170; J2250; J2405; J3010

== ENCOUNTER → 2021-07-06 | Outpatient (REF) | payer OTHER ==
[~2021-07-06] MED LIST changes: -ACETAMINOPHEN 500 MG TAB PO ONE; -NAPROXEN 250 MG TAB PO ONE; -NS 1,000 ML IV SCH; -PREGABALIN 25 MG CAP (LYRICA) PO ONE; -TRANEXAMIC ACID INJection 1,000 MG in NS 50 ML IV ONE; -ceFAZolin SOD 2 GM in IV 1 EA IV ONE; -dexameTHASONE 4 MG/ML 1ML VIAL (J1100 PER 1MG) IV ONE
[2021-07-06 14:25] LABS: HEMATOCRIT 36.2 % (36.0-47.0); HEMOGLOBIN 11.9 g/dl (12.0-15.5); MEAN CORPUSCULAR HEMOGLOBIN 30.3 pg (27.0-33.0); MEAN CORPUSCULAR HGB CONC 32.9 g/dl (32.0-36.5); MEAN CORPUSCULAR VOLUME 92.1 fl (80.0-96.0); PLATELET COUNT, AUTOMATED 289 10^3/uL (150-450); RED BLOOD COUNT 3.93 10^6/uL (4.00-5.40); WHITE BLOOD COUNT 4.4 10^3/uL (4.0-10.0)
[2021-07-06 14:36] LABS: BLOOD UREA NITROGEN 17 MG/DL (7-18); CALCIUM LEVEL 9.4 MG/DL (8.8-10.2); CARBON DIOXIDE LEVEL 28 MEQ/L (21-32); CHLORIDE LEVEL 104 MEQ/L (98-107); CREATININE FOR GFR 0.84 MG/DL (0.55-1.30); GLOMERULAR FILTRATION RATE > 60.0 (>45); GLUCOSE, FASTING 122 MG/DL (70-100); POTASSIUM SERUM 3.7 MEQ/L (3.5-5.1); SODIUM LEVEL 139 MEQ/L (136-145)
== END ==
LOC: M LAB REF 13:39
PROVIDERS: ATTEND Family Medicine
DX: Z79.899 Other long term (current) drug therapy (principal)

== ENCOUNTER → 2021-07-13 | Outpatient (CLI) | payer OTHER ==
--- NOTE | 2021-07-13 09:35 | REP ---
INDICATION: SURGICAL AFTERCARE. COMPARISON: None. TECHNIQUE: [place] and weight-bearing AP and lateral views of the left knee FINDINGS: Status post arthroplasty with normal appearance and positioning to the femoral and tibial components. Postsurgical changes are appreciated soft tissue swelling and joint effusion noted. IMPRESSION: Satisfactory appearance and positioning to the orthopedic hardware. <Electronically signed by Stephan Juarez > 07/13/21 0983
== END ==
LOC: M SOG 09:03
PROVIDERS: ATTEND Orthopaedic Surgery Adult Reconstructive Orthopaedic Surgery
DX: Z96.652 Presence of left artificial knee joint (principal)

== ENCOUNTER 2021-07-25 14:53 | Outpatient (RCR) | payer OTHER | END 2021-07-26 | LOC: M PT 14:53 | PROVIDERS: ATTEND Orthopaedic Surgery Adult Reconstructive Orthopaedic Surgery | DX: Z96.651 Presence of right artificial knee joint (principal) ==

== ENCOUNTER 2021-08-18 13:00 | Outpatient (RCR) | payer OTHER | END 2021-08-25 | LOC: M PT 13:00 | PROVIDERS: ATTEND Orthopaedic Surgery Adult Reconstructive Orthopaedic Surgery | DX: Z47.1 Aftercare following joint replacement surgery (principal); Z96.652 Presence of left artificial knee joint ==

== ENCOUNTER → 2021-10-12 | Outpatient (CLI) | payer OTHER ==
--- NOTE | 2021-10-12 15:31 | REP ---
INDICATION: TKA. COMPARISON: None. TECHNIQUE: AP, lateral, sunrise views of the left knee FINDINGS: Satisfactory left knee arthroplasty. Residual osseous structures without acute fracture or dislocation. IMPRESSION: Normal appearing left knee replacement. <Electronically signed by Stephan Juarez > 10/12/21 [id number]
== END ==
LOC: M SOG 09:36
PROVIDERS: ATTEND Orthopaedic Surgery Adult Reconstructive Orthopaedic Surgery
DX: Z96.652 Presence of left artificial knee joint (principal)

== ENCOUNTER → 2022-06-14 | Outpatient (CLI) | payer OTHER | LOC: M SOG 08:58 | PROVIDERS: ATTEND Orthopaedic Surgery Adult Reconstructive Orthopaedic Surgery | DX: Z96.652 Presence of left artificial knee joint (principal) ==

== ENCOUNTER → 2022-12-20 | Outpatient (CLI) | payer OTHER | LOC: M SOG 08:04 | PROVIDERS: ATTEND Orthopaedic Surgery Adult Reconstructive Orthopaedic Surgery | DX: Z96.652 Presence of left artificial knee joint (principal) ==

== ENCOUNTER → 2023-02-19 | Outpatient (CLI) | payer OTHER | LOC: M SOG 08:02 | PROVIDERS: ATTEND Orthopaedic Surgery Adult Reconstructive Orthopaedic Surgery | DX: Z96.652 Presence of left artificial knee joint (principal); S82.002D Unspecified fracture of left patella, subsequent encounter for closed fracture with routine healing; Y93.9 Activity, unspecified; Y92.9 Unspecified place or not applicable ==

== ENCOUNTER 2023-03-15 15:28 | Emergency (ER) | payer OTHER ==
[~2023-03-15] VITALS: Ht 157.5 cm; Wt 70.5 kg
[2023-03-15] MEDS ORDERED: IBUP-1022 PO (16:44)
[2023-03-15 17:04] VITALS: BP 140/85
== END 2023-03-15 17:08 | disposition home or self-care (01) ==
LOC: M ED 15:28
DX: S62.636A Displaced fracture of distal phalanx of right little finger, initial encounter for closed fracture (principal); Y93.19 Activity, other involving water and watercraft; Z79.1 Long term (current) use of non-steroidal anti-inflammatories (NSAID)

== ENCOUNTER → 2023-04-12 | Outpatient (CLI) | payer OTHER ==
[~2023-04-12] MED LIST changes: +IBUP-1022 PO
== END ==
LOC: M SOG 10:41
PROVIDERS: ATTEND Orthopaedic Surgery
DX: M25.562 Pain in left knee (principal); S82.002D Unspecified fracture of left patella, subsequent encounter for closed fracture with routine healing

== ENCOUNTER → 2023-05-01 | Outpatient (CLI) | payer OTHER | LOC: M SOG 07:56 | PROVIDERS: ATTEND Physician Assistant | DX: Z53.9 Procedure and treatment not carried out, unspecified reason (principal) ==

== ENCOUNTER → 2023-08-08 | Outpatient (REF) | payer OTHER ==
[2023-08-08 19:08] LABS: ALBUMIN 4.1 G/DL (3.2-5.2); ALKALINE PHOSPHATASE 94 U/L (46-116); ALT/SGPT 25 U/L (7.0-40); AST/SGOT 8 U/L (<34); BILIRUBIN,TOTAL 0.6 MG/DL (0.3-1.2); BLOOD UREA NITROGEN 21 MG/DL (9-23); CALCIUM LEVEL 9.5 MG/DL (8.3-10.6); CARBON DIOXIDE LEVEL 30 MMOL/L (20-31); CHLORIDE LEVEL 103 MMOL/L (98-107); CHOLESTEROL LEVEL 211 MG/DL (<200); CHOLESTEROL RISK RATIO 3.19 (<5); CREATININE FOR GFR 0.72 MG/DL (0.55-1.30); GLOMERULAR FILTRATION RATE > 60.0 (>45); GLUCOSE, FASTING 90 MG/DL (74-106); LDL CHOLESTEROL 132.2 MG/DL (<100); POTASSIUM SERUM 4.5 MMOL/L (3.5-5.1); SODIUM LEVEL 140 MMOL/L (136-145); TOTAL PROTEIN 7.1 G/DL (5.7-8.2); TRIGLYCERIDES LEVEL 64 MG/DL (<150)
== END ==
LOC: M SFHCCLAY 11:00
PROVIDERS: ATTEND Nurse Practitioner Family
DX: Z13.220 Encounter for screening for lipoid disorders (principal); M17.12 Unilateral primary osteoarthritis, left knee

== ENCOUNTER 2023-09-11 10:59 | Outpatient (RCR) | payer OTHER | END 2023-09-25 | LOC: M PT 10:59 | PROVIDERS: ATTEND Orthopaedic Surgery Adult Reconstructive Orthopaedic Surgery | DX: M76.32 Iliotibial band syndrome, left leg (principal) ==

== ENCOUNTER → 2024-06-11 | Outpatient (CLI) | payer OTHER | LOC: M CLY 11:31 | PROVIDERS: ATTEND Nurse Practitioner Family | DX: M25.561 Pain in right knee (principal); M17.11 Unilateral primary osteoarthritis, right knee ==

== ENCOUNTER → 2024-07-30 | Outpatient (REF) | payer OTHER ==
[2024-07-30 19:20] LABS: BASO % 0.2 % (0.0-1.0); EOS # 0.1 10^3/uL (0.0-0.5); EOS % 0.8 % (0.0-3.0); LYMPH # 1.6 10^3/uL (1.5-5.0); LYMPH % 25.9 % (24.0-44.0); MEAN CORPUSCULAR HEMOGLOBIN 30.9 pg (27.0-33.0); MEAN CORPUSCULAR HGB CONC 33.3 g/dl (32.0-36.5); MEAN CORPUSCULAR VOLUME 92.6 fl (80.0-96.0); MONO # 0.4 10^3/uL (0.0-0.8); NEUTROPHILS % 65.9 % (36.0-66.0); PLATELET COUNT, AUTOMATED 248 10^3/uL (150-450); RED BLOOD COUNT 4.21 10^6/uL (4.00-5.40); WHITE BLOOD COUNT 6.1 10^3/uL (4.0-10.0)
[2024-07-30 19:40] LABS: BILIRUBIN,TOTAL 0.6 MG/DL (0.3-1.2); CALCIUM LEVEL 9.4 MG/DL (8.3-10.6); CHOLESTEROL RISK RATIO 3.26 (<5); CREATININE FOR GFR 1.06 MG/DL (0.55-1.30); GLOMERULAR FILTRATION RATE 55.7 (>45); HDL CHOLESTEROL 62.4 MG/DL (>40); LDL CHOLESTEROL 121.4 MG/DL (<100); NON-HDL-C 141.6 MG/DL; POTASSIUM SERUM 3.8 MMOL/L (3.5-5.1); TOTAL PROTEIN 6.9 G/DL (5.7-8.2)
== END ==
LOC: M SFHCCLAY 14:08
PROVIDERS: ATTEND Nurse Practitioner Family
DX: Z00.00 Encounter for general adult medical examination without abnormal findings (principal); Z13.0 Encounter for screening for diseases of the blood and blood-forming organs and certain disorders involving the immune mechanism; Z13.220 Encounter for screening for lipoid disorders

== ENCOUNTER 2024-09-13 11:19 | Emergency (ER) | payer OTHER ==
[~2024-09-13] VITALS: Ht 157.5 cm; Wt 72.7 kg
[2024-09-13 11:31] VITALS: BP 138/63; TEMP 97.4; O2SAT 100
[2024-09-13] MEDS ORDERED: DICL100G10 (11:52)
[2024-09-13] MEDS: ACETAMINOPHEN 325 MG TAB PO ONE (14:13)
== END 2024-09-13 14:21 | disposition home or self-care (01) ==
LOC: M ED 11:19
DX: M25.561 Pain in right knee (principal); X50.0XXA Overexertion from strenuous movement or load, initial encounter; Y92.009 Unspecified place in unspecified non-institutional (private) residence as the place of occurrence of the external cause; Y93.89 Activity, other specified; Y99.9 Unspecified external cause status; Z79.1 Long term (current) use of non-steroidal anti-inflammatories (NSAID); Z79.899 Other long term (current) drug therapy

== ENCOUNTER → 2024-10-02 | Outpatient (CLI) | payer OTHER ==
[~2024-10-02] MED LIST changes: +DICL100G10
== END ==
LOC: M PLAIMG 06:37
PROVIDERS: ATTEND Physician Assistant
DX: S83.411A Sprain of medial collateral ligament of right knee, initial encounter (principal); M25.561 Pain in right knee; M25.461 Effusion, right knee; X50.9XXA Other and unspecified overexertion or strenuous movements or postures, initial encounter; Y93.9 Activity, unspecified; Y92.9 Unspecified place or not applicable

== ENCOUNTER → 2024-12-30 | Outpatient (CLI) | payer OTHER | LOC: M SOG 07:56 | PROVIDERS: ATTEND Orthopaedic Surgery | DX: M17.11 Unilateral primary osteoarthritis, right knee (principal); Z96.652 Presence of left artificial knee joint ==

== ENCOUNTER → 2024-12-30 | Outpatient (CLI) | payer OTHER ==
[2024-12-30 12:34] LABS: BASO % 0.4 % (0.0-1.0); EOS # 0.1 10^3/uL (0.0-0.5); HEMATOCRIT 40.6 % (36.0-47.0); HEMOGLOBIN 13.2 g/dl (12.0-15.5); LYMPH # 1.6 10^3/uL (1.5-5.0); LYMPH % 31.3 % (24.0-44.0); MEAN CORPUSCULAR HEMOGLOBIN 29.9 pg (27.0-33.0); MEAN CORPUSCULAR HGB CONC 32.5 g/dl (32.0-36.5); MEAN CORPUSCULAR VOLUME 92.1 fl (80.0-96.0); MONO # 0.4 10^3/uL (0.0-0.8); NEUTROPHILS % 60.1 % (36.0-66.0); PLATELET COUNT, AUTOMATED 256 10^3/uL (150-450); RED BLOOD COUNT 4.41 10^6/uL (4.00-5.40)
[2024-12-30 12:36] LABS: PROTHROMBIN TIME 13.5 SECONDS (12.5-14.5)
[2024-12-30 12:38] LABS: ERYTHROCYTE SEDIMENTATION RATE 21 mm/hr (0-30)
[2024-12-30 12:39] LABS: C REACTIVE PROTEIN QUANTITATIV 0.66 MG/DL (<1.0)
[2024-12-30 12:40] LABS: ALKALINE PHOSPHATASE 103 U/L (35-104); ALT/SGPT 15 U/L (7.0-40); AST/SGOT 11 U/L (<34); BILIRUBIN,TOTAL 0.6 MG/DL (0.3-1.2); BLOOD UREA NITROGEN 16 MG/DL (9-23); CALCIUM LEVEL 9.8 MG/DL (8.3-10.6); CARBON DIOXIDE LEVEL 30 MMOL/L (20-31); CHLORIDE LEVEL 106 MMOL/L (98-107); CREATININE FOR GFR 0.71 MG/DL (0.55-1.30); GLOMERULAR FILTRATION RATE > 60.0 (>45); GLUCOSE, FASTING 79 MG/DL (74-106); POTASSIUM SERUM 4.3 MMOL/L (3.5-5.1); SODIUM LEVEL 143 MMOL/L (136-145); TOTAL PROTEIN 7.4 G/DL (5.7-8.2)
[2024-12-30 12:45] LABS: TOTAL 25(OH) VITAMIN D 28.8 NG/ML (20.0-100.0)
[2024-12-30 13:07] LABS: HEMOGLOBIN A1c 5.2 % (4.0-6.0)
== END ==
LOC: M PLALAB 10:16
PROVIDERS: ATTEND Orthopaedic Surgery
DX: M17.11 Unilateral primary osteoarthritis, right knee (principal)

== ENCOUNTER → 2025-01-21 | Outpatient (CLI) | payer OTHER | LOC: M RAD 12:07 | PROVIDERS: ATTEND Orthopaedic Surgery | DX: M17.11 Unilateral primary osteoarthritis, right knee (principal) ==

== ENCOUNTER 2025-02-03 06:10 | Observation (INO) | payer OTHER ==
[~2025-02-03] VITALS: Ht 157.5 cm; Wt 72.7 kg
[2025-02-03] VITALS (8 sets, daily range): BP systolic 111–135; BP diastolic 57–69; TEMP 97.4–98.3; O2SAT 92–97
[2025-02-03] MEDS ORDERED: LIDOCAINE 2% 100MG/5ML SDV (FOR ANES.) As Ordered ONE (06:47)
[2025-02-03] MEDS ORDERED: MIDAZOLAM INJ 2MG/2ML VIAL As Ordered ONE (06:47)
[2025-02-03] MEDS ORDERED: fentaNYL 100 MCG/2 ML INJECTION As Ordered ONE (06:47)
[2025-02-03] MEDS ORDERED: ONDANSETRON 4MG 2ML VIAL As Ordered ONE (06:47)
[2025-02-03] MEDS ORDERED: propofoL 200 MG/20 ML VIAL As Ordered ONE (06:47)
[2025-02-03] MEDS ORDERED: dexmedeTOMIDine (4MCG/ML)200MCG/50ML BTL (PRECEDEX) As Ordered ONE (06:47)
[2025-02-03] MEDS ORDERED: ROCURONIUM BROMIDE 50MG/5ML VIAL As Ordered ONE (06:47)
[2025-02-03] MEDS: LR 1,000 ML IV SCH ×2 (06:55→10:20)
[2025-02-03] MEDS ORDERED: propofoL 500 MG/50 ML VIAL As Ordered ONE (07:26)
[2025-02-03] MEDS ORDERED: PHENYLephrine 500MCG 5ML (100MCG/ML) SYRINGE As Ordered ONE (07:53)
[2025-02-03] MEDS ORDERED: ePHEDrine SULFATE 25 MG/5 ML(5MG/ML) SYRINGE As Ordered ONE (07:53)
[2025-02-03] MEDS: TRANEXAMIC ACID 100 MG/ML 10ML VIAL As Ordered ONE (08:00)
[2025-02-03] MEDS: ceFAZolin SODIUM 2 GM in DEXTROSE 5% (D5W) ADV/MINI-BAG 50 ML IV ONE (08:04)
[2025-02-03] MEDS: REK 50ML SYRINGE IA ONE (09:40)
[2025-02-03] MEDS ORDERED: ACETAMINOPHEN 1000MG/100ML IV BAG As Ordered ONE (10:10)
[2025-02-03] MEDS ORDERED: SENNA 8.6 MG TAB (SENOKOT) PO PRN (10:10)
[2025-02-03] MEDS: oxyCODONE 5MG TAB PO PRN ×2 (11:00→13:14)
[2025-02-03] MEDS: ONDANSETRON 4MG 2ML VIAL IV PRN ×2 (11:07→15:10)
[2025-02-03] MEDS: MORPHINE 2 MG/ML 1ML VIAL IV PRN ×2 (11:08→15:28)
[2025-02-03] MEDS: fentaNYL 100 MCG/2 ML INJECTION IV PRN (11:24)
[2025-02-03] MEDS ORDERED: HOME MED LIST COMPLETE! XX SCH (13:40)
[2025-02-03] MEDS: ceFAZolin SODIUM 2 GM in DEXTROSE 5% (D5W) ADV/MINI-BAG 50 ML IV SCH (16:13)
[2025-02-03] MEDS: FERROUS SULFATE 325MG TAB PO SCH (16:13)
[2025-02-03] MEDS: ASCORBIC ACID 500 MG TAB PO SCH (16:13)
[2025-02-03] MEDS: KETOROLAC 30 MG/ML 1ML VIAL IV ONE (16:58)
[2025-02-03] MEDS: ACETAMINOPHEN 325 MG TAB PO SCH (17:00)
[2025-02-03] MEDS: CelecoXIB (CeleBREX) 100 MG CAP PO SCH (20:28)
[2025-02-03] MEDS: ASPIRIN 81MG ENTERIC TABLET PO SCH (20:28)
[2025-02-03] MEDS: DOCUSATE SODIUM 100MG CAPSULE PO SCH (20:28)
[2025-02-04 00:45] VITALS: BP 118/63; TEMP 97.9; O2SAT 95
[2025-02-04 04:45] VITALS: BP 117/58; TEMP 97.6; O2SAT 100
[2025-02-04 06:47] LABS: HEMATOCRIT 30.6 % (36.0-47.0); HEMOGLOBIN 10.1 g/dl (12.0-15.5); MEAN CORPUSCULAR HEMOGLOBIN 30.8 pg (27.0-33.0); MEAN CORPUSCULAR VOLUME 93.3 fl (80.0-96.0); PLATELET COUNT, AUTOMATED 194 10^3/uL (150-450); RED BLOOD COUNT 3.28 10^6/uL (4.00-5.40); WHITE BLOOD COUNT 7.7 10^3/uL (4.0-10.0)
[2025-02-04 07:18] LABS: ALBUMIN 2.9 G/DL (3.2-5.2); ALKALINE PHOSPHATASE 74 U/L (35-104); ALT/SGPT 14 U/L (7.0-40); AST/SGOT < 8 U/L (<34); BILIRUBIN,TOTAL 0.4 MG/DL (0.3-1.2); BLOOD UREA NITROGEN 13 MG/DL (9-23); CALCIUM LEVEL 8.5 MG/DL (8.3-10.6); CARBON DIOXIDE LEVEL 30 MMOL/L (20-31); CHLORIDE LEVEL 104 MMOL/L (98-107); CREATININE FOR GFR 0.65 MG/DL (0.55-1.30); GLOMERULAR FILTRATION RATE > 60.0 (>45); GLUCOSE, FASTING 110 MG/DL (74-106); POTASSIUM SERUM 3.9 MMOL/L (3.5-5.1); SODIUM LEVEL 141 MMOL/L (136-145); TOTAL PROTEIN 5.6 G/DL (5.7-8.2)
[2025-02-04] MEDS: CEFDINIR 300 MG CAP (OMNICEF) PO SCH (07:48)
[2025-02-04] MEDS: oxyCODONE 5MG TAB PO PRN (11:59)
[2025-02-04 12:00] VITALS: BP 137/64; TEMP 98.1; O2SAT 100
[2025-02-04 20:14] VITALS: BP 117/63; TEMP 98.6; O2SAT 96
[2025-02-05 00:01] VITALS: BP 127/64; TEMP 97.5; O2SAT 98
[2025-02-05 04:00] VITALS: BP 112/66; TEMP 98.1; O2SAT 98
[2025-02-05 06:10] LABS: HEMATOCRIT 30.2 % (36.0-47.0); HEMOGLOBIN 9.8 g/dl (12.0-15.5); MEAN CORPUSCULAR HEMOGLOBIN 30.2 pg (27.0-33.0); MEAN CORPUSCULAR HGB CONC 32.5 g/dl (32.0-36.5); MEAN CORPUSCULAR VOLUME 92.9 fl (80.0-96.0); PLATELET COUNT, AUTOMATED 200 10^3/uL (150-450); RED BLOOD COUNT 3.25 10^6/uL (4.00-5.40); WHITE BLOOD COUNT 6.1 10^3/uL (4.0-10.0)
[2025-02-05 06:36] LABS: ALBUMIN 2.9 G/DL (3.2-5.2); ALKALINE PHOSPHATASE 68 U/L (35-104); ALT/SGPT 13 U/L (7.0-40); AST/SGOT 12 U/L (<34); BILIRUBIN,TOTAL 0.6 MG/DL (0.3-1.2); BLOOD UREA NITROGEN 11 MG/DL (9-23); CALCIUM LEVEL 8.5 MG/DL (8.3-10.6); CARBON DIOXIDE LEVEL 31 MMOL/L (20-31); CHLORIDE LEVEL 105 MMOL/L (98-107); GLOMERULAR FILTRATION RATE > 60.0 (>45); GLUCOSE, FASTING 105 MG/DL (74-106); POTASSIUM SERUM 4.1 MMOL/L (3.5-5.1); SODIUM LEVEL 141 MMOL/L (136-145); TOTAL PROTEIN 5.6 G/DL (5.7-8.2)
[2025-02-05 08:29] VITALS: BP 112/70; TEMP 98.1; O2SAT 97
[2025-02-05 12:55] VITALS: BP 112/57; TEMP 98.6; O2SAT 95
[2025-02-05] MEDS ORDERED: ASPI81TAEC PO (16:19)
[2025-02-05] MEDS ORDERED: CEFD300CAP PO (16:19)
[2025-02-05] MEDS ORDERED: CELE100C PO (16:19)
[2025-02-05] MEDS ORDERED: ACET32TAB PO (16:19)
[2025-02-05] MEDS ORDERED: OXYC1TAB23 PO (16:19)
[2025-02-05 16:25] VITALS: BP 113/59; TEMP 98.2; O2SAT 96
== END 2025-02-05 17:55 | disposition home or self-care (01) ==
LOC: M SDC 06:10 → M RR INP 06:11 → M MS4PR 12:05 → M MS5PR 02-04 15:25
PROVIDERS: ADMIT Orthopaedic Surgery; ATTEND Orthopaedic Surgery
DX: M17.11 Unilateral primary osteoarthritis, right knee (principal); K21.9 Gastro-esophageal reflux disease without esophagitis
CPT/HCPCS: 27447; 36415; 73560; 80053; 85027; 88300; 96365; 96366; 96375; 97110; 97116; 97161; 97530; C1776; J0131; J0171; J0690; J1100; J1885; J2250; J2371; J2405; J2795; J3010; S2900

== ENCOUNTER → 2025-02-17 | Outpatient (CLI) | payer OTHER ==
[~2025-02-17] MED LIST changes: +ACET32TAB PO; +ASPI81TAEC PO; +CEFD300CAP PO; +CELE100C PO; +OXYC1TAB23 PO
== END ==
LOC: M SOG 07:52
PROVIDERS: ATTEND Orthopaedic Surgery
DX: Z96.651 Presence of right artificial knee joint (principal); Z47.1 Aftercare following joint replacement surgery; M25.461 Effusion, right knee

== ENCOUNTER → 2025-02-24 | Outpatient (CLI) | payer OTHER | LOC: M SOG 13:00 | PROVIDERS: ATTEND Orthopaedic Surgery | DX: Z47.1 Aftercare following joint replacement surgery (principal); Z96.651 Presence of right artificial knee joint ==

== ENCOUNTER → 2025-03-31 | Outpatient (CLI) | payer OTHER | LOC: M SOG 07:55 | PROVIDERS: ATTEND Orthopaedic Surgery | DX: Z96.651 Presence of right artificial knee joint (principal); Z47.1 Aftercare following joint replacement surgery; M25.461 Effusion, right knee ==

== ENCOUNTER → 2025-07-01 | Outpatient (CLI) | payer OTHER | LOC: M SOG 06:49 | PROVIDERS: ATTEND Orthopaedic Surgery | DX: Z96.651 Presence of right artificial knee joint (principal); Z47.1 Aftercare following joint replacement surgery; M25.561 Pain in right knee ==

== ENCOUNTER → 2025-08-03 | Outpatient (REF) | payer OTHER ==
[~2025-08-03] MED LIST changes: -IBUP-1022 PO; +IBUP600T42 PO
[2025-08-03 17:59] LABS: BASO # 0.0 10^3/uL (0.0-0.2); BASO % 0.2 % (0.0-1.0); EOS # 0.1 10^3/uL (0.0-0.5); EOS % 1.1 % (0.0-3.0); LYMPH # 1.3 10^3/uL (1.5-5.0); LYMPH % 30.5 % (24.0-44.0); MONO # 0.4 10^3/uL (0.0-0.8); MONO % 8.0 % (2.0-8.0); NEUTROPHILS # 2.6 10^3/uL (1.5-8.5); NEUTROPHILS % 60.0 % (36.0-66.0); PLATELET COUNT, AUTOMATED 253 10^3/uL (150-450)
[2025-08-03 18:03] LABS: ALT/SGPT 28 U/L (7.0-40); AST/SGOT 18 U/L (<34); CALCIUM LEVEL 9.6 MG/DL (8.3-10.6); CARBON DIOXIDE LEVEL 30 MMOL/L (20-31); CHLORIDE LEVEL 105 MMOL/L (98-107); CHOLESTEROL LEVEL 199 MG/DL (<200); CHOLESTEROL RISK RATIO 3.05 (<5); CREATININE FOR GFR 0.74 MG/DL (0.55-1.30); GLOMERULAR FILTRATION RATE > 90.0 (>45); LDL CHOLESTEROL 120.0 MG/DL (<100); NON-HDL-C 133.8 MG/DL; POTASSIUM SERUM 4.4 MMOL/L (3.5-5.1); SODIUM LEVEL 143 MMOL/L (136-145); TRIGLYCERIDES LEVEL 69 MG/DL (<150)
[2025-08-03 18:41] LABS: ESTIMATED AVERAGE GLUCOSE 114.0 MG/DL (60-110)
== END ==
LOC: M SFHCCLAY 11:36
PROVIDERS: ATTEND Nurse Practitioner Family
DX: Z13.0 Encounter for screening for diseases of the blood and blood-forming organs and certain disorders involving the immune mechanism (principal); Z13.220 Encounter for screening for lipoid disorders; Z13.1 Encounter for screening for diabetes mellitus